=== PATIENT | female | born 1995 | race Caucasian/White ===

== ENCOUNTER 2019-07-07 01:23 | Emergency (ER) | payer MEDICAID, OTHER ==
[~2019-07-07] VITALS: Ht 172.7 cm; Wt 69.0 kg
[~2019-07-07 01:23] MED LIST: HYDR-3980 PO
[2019-07-07 01:28] VITALS: Ht 172.7 cm; Wt 69.0 kg
[2019-07-07] MEDS ORDERED: morphine 4 MG/ML VIAL IM STA (02:19)
[2019-07-07] MEDS ORDERED: ONDANSETRON (ODT) 4 MG TAB ODT STA (02:19)
[2019-07-07] MEDS: HYDROCODONE/APAP (10/325) TAB PO ONE ×2 (03:03→03:16)
[2019-07-07 03:16] VITALS: BP 126/72; PULSE 74; RESP 20
== END 2019-07-07 03:16 | disposition home or self-care (01) ==
LOC: E/R 01:23
DX: F11.23 Opioid dependence with withdrawal (principal); F17.210 Nicotine dependence, cigarettes, uncomplicated
CPT/HCPCS: 96372; J2270; Z7502; Z7610